=== PATIENT | male | born 1975 | race Caucasian/White ===

== ENCOUNTER 2020-02-09 07:55 | Inpatient (IN) | payer OTHER ==
[~2020-02-09] VITALS: Ht 185.4 cm; Wt 113.4 kg
[2020-02-09 08:01] VITALS: Ht 185.4 cm; Wt 113.4 kg
[2020-02-09 10:04] LABS: CALCIUM 8.7 mg/dL (8.5-10.1); CARBON DIOXIDE 26.3 mmol/L (21-32); CHLORIDE SERUM 95 mmol/L (98-107); CREATININE SERUM 0.9 mg/dL (0.7-1.3); GFR1 > 60 mL/min; GLUCOSE SERUM 113 mg/dL (74-106); POTASSIUM SERUM 3.2 mmol/L (3.5-5.1); SODIUM SERUM 136 mmol/L (136-145)
[2020-02-09 10:08] LABS: ALBUMIN 4.2 g/dL (3.4-5.0); ALKALINE PHOSPHATASE 70 U/L (46-116); ALT/SGPT 105 U/L (16-63); AST/SGOT 120 U/L (15-37); BILIRUBIN TOTAL 0.9 mg/dL (0.20-1.00); TOTAL PROTEIN, SERUM 7.8 g/dL (6.4-8.2)
[2020-02-09 11:01] LABS: BASOPHIL % 0 % (0-2); PLATELET COUNT 131 x10^3mcL (130-400); RED CELL DISTRIBUTION WIDTH 14.9 % (11.5-14.5)
[2020-02-09 13:55] LABS: UA SPECIFIC GRAVITY <=1.005 (1.005-1.035); microscopic required? YES; urine erythrocyte 1+ (NEGATIVE)
[2020-02-09 14:25] LABS: CHOLESTEROL/HDL RATIO 1.5
[2020-02-09 14:52] VITALS: BP 146/82
[2020-02-09 14:54] LABS: AMPHETAMINE QUAL UR NONE DETECTED (See below)
[2020-02-09 20:25] VITALS: BP 137/85
[2020-02-10 05:41] VITALS: BP 145/90
[2020-02-10 08:12] LABS: BASOPHIL % 0.4 % (0-2)
[2020-02-10 08:21] LABS: CALCIUM 9.5 mg/dL (8.5-10.1); CARBON DIOXIDE 29.5 mmol/L (21-32); CHLORIDE SERUM 97 mmol/L (98-107); CREATININE SERUM 0.8 mg/dL (0.7-1.3); GFR1 > 60 mL/min; GLUCOSE SERUM 77 mg/dL (74-106); MAGNESIUM 2.2 mg/dL (1.8-2.4); PHOSPHOROUS 3.3 mg/dL (2.5-4.9); POTASSIUM SERUM 4.7 mmol/L (3.5-5.1); SODIUM SERUM 138 mmol/L (136-145)
[2020-02-10 09:00] VITALS: BP 160/92
[2020-02-10 09:18] LABS: PLATELET COUNT 101 x10^3mcL (130-400); RED CELL DISTRIBUTION WIDTH 15.5 % (11.5-14.5)
[2020-02-10 14:01] VITALS: BP 150/100
[2020-02-10 17:46] VITALS: BP 142/91
[2020-02-10 21:41] VITALS: BP 134/86
[2020-02-11 05:58] VITALS: BP 123/85
[2020-02-11 07:18] LABS: ALBUMIN 4.1 g/dL (3.4-5.0); ALKALINE PHOSPHATASE 62 U/L (46-116); ALT/SGPT 133 U/L (16-63); AST/SGOT 115 U/L (15-37); BILIRUBIN TOTAL 1.7 mg/dL (0.20-1.00); CALCIUM 9.1 mg/dL (8.5-10.1); CARBON DIOXIDE 28.6 mmol/L (21-32); CHLORIDE SERUM 97 mmol/L (98-107); GFR1 > 60 mL/min; GLUCOSE SERUM 85 mg/dL (74-106); POTASSIUM SERUM 3.5 mmol/L (3.5-5.1); SODIUM SERUM 136 mmol/L (136-145); TOTAL PROTEIN, SERUM 8.1 g/dL (6.4-8.2)
[2020-02-11 09:23] VITALS: BP 155/95
[2020-02-11 13:05] VITALS: BP 125/79
[2020-02-11 21:10] VITALS: BP 128/86
[2020-02-12 05:55] VITALS: BP 120/78
[2020-02-12 07:00] LABS: CALCIUM 9.5 mg/dL (8.5-10.1); CARBON DIOXIDE 28.6 mmol/L (21-32); CHLORIDE SERUM 100 mmol/L (98-107); GFR1 > 60 mL/min; GLUCOSE SERUM 95 mg/dL (74-106); MAGNESIUM 2.4 mg/dL (1.8-2.4); POTASSIUM SERUM 4.5 mmol/L (3.5-5.1); SODIUM SERUM 136 mmol/L (136-145)
[2020-02-12 07:16] LABS: ALBUMIN 3.8 g/dL (3.4-5.0); BILIRUBIN DIRECT 0.32 mg/dL (0.0-0.2); BILIRUBIN TOTAL 1.2 mg/dL (0.20-1.00); TOTAL PROTEIN, SERUM 7.4 g/dL (6.4-8.2)
[2020-02-12 07:35] LABS: BASOPHIL % 0.3 % (0-2); PLATELET COUNT 90 x10^3mcL (130-400); RED CELL DISTRIBUTION WIDTH 15.2 % (11.5-14.5)
[2020-02-12 09:13] VITALS: BP 126/91
[2020-02-12] MEDS ORDERED: METOPROLOL TART25 M1 PO (10:45)
[2020-02-12] MEDS ORDERED: PEP20 PO (10:45)
[2020-02-12] MEDS ORDERED: ELA25 PO (10:45)
[2020-02-12 10:53] VITALS: BP 126/91
== END 2020-02-12 11:10 | disposition home or self-care (01) | DRG 392 ==
LOC: ED 07:55 → DU 11:35 → MU 02-11 16:39
PROVIDERS: Emergency Medicine; Family Medicine; ADMIT Internal Medicine; ATTEND Internal Medicine
PROC: 0DB78ZX Excision of Stomach, Pylorus, Via Natural or Artificial Opening Endoscopic, Diagnostic (ICD-10-PCS; principal; 2020-02-10)
DX: K21.9 Gastro-esophageal reflux disease without esophagitis (principal); E87.6 Hypokalemia; E87.8 Other disorders of electrolyte and fluid balance, not elsewhere classified; R73.9 Hyperglycemia, unspecified; F41.9 Anxiety disorder, unspecified; R07.89 Other chest pain; K70.0 Alcoholic fatty liver; K22.70 Barrett's esophagus without dysplasia; R74.0 Nonspecific elevation of levels of transaminase and lactic acid dehydrogenase [LDH]; Z82.49 Family history of ischemic heart disease and other diseases of the circulatory system; Z83.3 Family history of diabetes mellitus; Z79.82 Long term (current) use of aspirin; Z79.899 Other long term (current) drug therapy; Z72.0 Tobacco use
CPT/HCPCS: 43235; 83880; A9500; G0378; J1200; J1610; J2250; J2270; J2310; J2405; J2785; J3010; J3490; Q0092